=== PATIENT | female | born 2005 | race Caucasian/White ===

== ENCOUNTER 2025-07-03 16:42 | Emergency (ER) | payer BC, SELFPAY ==
[2025-07-03 16:49] VITALS: BP 126/86
[2025-07-03 18:21] LABS: Urine Character Clear (Clear)
[2025-07-03] MEDS: MOTRIN 400 MG PO (18:29)
[2025-07-03 18:39] LABS: HCG, Urine Qualitative Screen Negative
[2025-07-03 18:40] LABS: Urine Squamous Cell >30 /LPF (Few)
[2025-07-03 18:41] LABS: Urine Red Blood Cell 0-2 /HPF (0-2); Urine White Cell 0-2 /HPF (0-5)
[2025-07-03 20:05] LABS: Hematocrit 41.8 % (37.0-47.0); Hemoglobin 13.7 g/dL (12.0-16.0); Mean Corp Hgb Conc. 32.8 g/dL (33.0-37.0); Mean Corpuscular Volume 80.1 fL (81.0-99.0); Platelet Count 352 10^3/uL (130-400); Red Cell Dist. Width 11.9 % (11.5-14.5)
[2025-07-03 20:23] LABS: ALT (SGPT) 14 U/L (0-35); AST (SGOT) 20 U/L (14-36); Albumin 5.1 g/dl (3.5-5.0); Alkaline Phosphatase 54 U/L (38-126); Blood Urea Nitrogen 12 mg/dl (7-17); Calcium 9.8 mg/dl (8.4-10.2); Carbon Dioxide 25 mmol/L (22-30); Chloride 102 mmol/L (98-107); Glucose 85 mg/dl (70-99); Potassium 4.0 mmol/L (3.5-5.1); Sodium 133 mmol/L (135-145); Total Protein 8.1 g/dl (6.3-8.2); eGFR > 60.00
--- NOTE | 2025-07-03 22:47 | ED.GENMED ---
History of Present Illness
General
Chief Complaint: Flank Pain
Source: patient and family
Exam Limitations: none
Time Seen by Provider: 07/03/25 17:55
Nursing documentation reviewed up to this point in time: agreed with
History of Present Illness
History of Present Illness:
Patient who has had IUD in place for the past 2 years, secondary to heavy menstrual cycle along, as well as contraception purposes, presents to ED secondary to worsening left-sided abdominal pain over the past 1 week. Abdominal pain described as
sharp, nonradiating, worse with certain movements, mild improvement with rest. Denies trauma. Denies fever or chills. Denies nausea, vomiting, or diarrhea. Denies loss of appetite. Denies back pain. Denies difficulty with urination. Patient
is sexually active with use of protection. Denies vaginal discharge. Denies previous history of STDs. Patient who has irregular menses secondary to IUD in place, does report having completed her menstrual cycle 2 days ago. In addition, 3 months
ago, she experienced similar type of pain, which resolved without evaluation spontaneously. There is family history of kidney stones.
Review of Systems
Review of Systems
Allergies reviewed?: Yes
All Other Systems: ROS reviewed and negative except as documented in HPI and ROS
Constitutional: Reports no symptoms; Denies fever
Respiratory: Reports no symptoms
Cardiac: Reports no symptoms
ABD/GI: Reports abdominal pain; Denies vomiting, diarrhea or constipated
: Reports no symptoms; Denies difficulty voiding or bleeding
Musculoskeletal: Reports no symptoms; Denies back pain
Skin: Reports no symptoms
Neurological: Reports no symptoms
Phy Exam
Physical Exam
Physical Exam:
Physical Exam
General: mild painful distress, not acutely ill. afebrile
Head: nc/at. eomi
Neck: supple. no meningeal signs.
Heart: s1/s2 regular rate and rhythm.
Lungs: no acute respiratory distress. clear bilaterally
Abdomen: normal bowel sounds. mild LUQ/LLQ tenderness to palpation. no distention/guarding
Neuro: alert and oriented x 3. no focal neurological deficits
Skin: no rash
Psychiatric: well kept. interactive and cooperative
Extremities: no edema. no calf tenderness.
Course
Orders/Labs/Results
Orders:
Orders
07/03/25 18:00
HCG, Urine Qualitative Screen Urgent
Date Specimen was Collected: 07/03/25
Time Specimen was Collected: 17:59
Comment: ADD ON
UA [Urinalysis] Urgent
Date Specimen was Collected: 07/03/25
Time Specimen was Collected: 17:59
Urine Microscopic Urgent
Date Specimen was Collected: 07/03/25
Time Specimen was Collected: 17:59
07/03/25 18:26
Add On- LAB Urgent
Tests Added?: urine preg, qualitative
US Pelvis W Transvag Combined Urgent
Comment:
Reason For Exam: LLQ pain
07/03/25 18:27
Ibuprofen [Motrin] 400 mg .ROUTE .STK-MED ONE
07/03/25 18:28
Ibuprofen [Motrin] 400 mg PO NOW STA
07/03/25 19:27
CT Abd/pel Without Iv Or Oral Urgent
Comment:
Reason For Exam: left flank pain
07/03/25 19:49
Complete Blood Count/No Diff Urgent
Comprehensive Metabolic Panel Urgent
Monotest Urgent
Abnormal Lab Results
07/03/25 07/03/25
18:00 19:49
MCV 80.1 L fL
(81.0-99.0)
MCH 26.2 L pg
(27.0-31.0)
MCHC 32.8 L g/dL
(33.0-37.0)
Sodium 133 L mmol/L
(135-145)
Albumin 5.1 H g/dl
(3.5-5.0)
Urine Bacteria Few A
(Negative)
Urine Albumin 1+ A
(Neg - Trace)
07/03/25 19:49
07/03/25 19:49
Vital Signs
Initial and Last Documented VS:
Initial Vital Signs
Temp Pulse Resp BP Pulse Ox
98.1 F 100 20 126/86 98
07/03/25 16:49 07/03/25 16:49 07/03/25 16:49 07/03/25 16:49 07/03/25 16:49
Last Documented Vital Signs
Temp Pulse Resp BP Pulse Ox
98.1 F 100 20 126/86 98
07/03/25 16:49 07/03/25 16:49 07/03/25 16:49 07/03/25 16:49 07/03/25 22:48
MDM/Problems Addressed
MDM/Problems Addressed:
Ultrasound report reviewed and discussed with patient and her mother. In light of patient's persistent symptoms, decision made to obtain CT abdomen pelvis, especially with family history of kidney stones.
CT abdomen pelvis report reviewed and discussed with patient and her mother. In light of patient's non-specific symptoms, along with family history of Crohn's disease, patient will be referred to gastroenterology for further evaluation and
treatment. Return precautions provided, i.e. fever/worsening pain. Patient otherwise is afebrile, hemodynamically stable, and appears nontoxic at time of discharge.
Pelvic exam deferred at this time, as patient reports use of protection without pelvic pain/discharge/abnormal bleeding
*Pulse Oximetry
SaO2: 98
Oxygen Mode of Delivery: Room air
Patient hypoxic: no
*Critical Care Note
Total Time (30-74mins, 75-104mins- exclusive of procedures): Not Applicable
ED Attending Note
-
Portions of this chart may have been created with voice recognition software.� Occasional wrong word or��sound alike� substitutions may have occurred due to the inherent limitations of voice recognition software.
Discharge Plan
Departure
Patient Disposition: Home (Routine Discharge)
Date of Disposition: 07/03/25
Time of Disposition: 22:48
Patient with high blood pressure during this ER visit?: Yes
Condition: Fair
Discharge Problem:
Abdominal pain
Instructions: Abdominal pain in adults (DC)
Prescriptions:
No Action
ibuprofen 600 MG tablet
600 mg PO Q6HPRN PRN (Reason: pain) Qty: 20 0RF
ondansetron 4 MG tablet,disintegrating
4 mg PO TIDPRN PRN (Reason: nausea/vomiting) Qty: 10 0RF
Referrals:
Valeri Mcrae PA-C [Family Provider, Pediatrics]
Laquita Olvera MD [Active, Gastroenterology]
Activity Restrictions/Additional Instructions:
As discussed, please follow-up with your primary care physician and/or referred injection wax molder for further evaluation and treatment. Please consider return to ED with worsening symptoms, i.e. fever/worsening pain.
Interventions
Interventions:
*Risk Screen - Suicide Last Done: 07/03/25 19:57
*General Assessment Last Done: 07/03/25 16:49
*Neglect/Abuse Screening Last Done: 07/03/25 19:57
*ED- Fall Risk Assessment Last Done: 07/03/25 19:57
*ED COVID-19 Vaccine History Last Done: 07/03/25 19:57
*ED Influenza Vaccine History Last Done: 07/03/25 19:57
*Nursing Disposition Last Done: 07/03/25 23:13
AW-Jtrqru-Ycdpllszrw Assessment Last Done: 07/03/25 17:55
ED-Female Genitourinary Assessment Last Done: 07/03/25 17:55
Discharge Date and Time
Discharge Date/Time: 07/03/25 23:16
Print Language: [place]
== END 2025-07-03 23:16 | disposition home or self-care (01) ==
LOC: EMR 16:42
PROVIDERS: EMERGENCY PHYSICIAN Emergency Medicine; FAMILY PHYSICIAN Physician Assistant
DX: R10.32 Left lower quadrant pain (principal); Z83.79 Family history of other diseases of the digestive system; Z84.19 Family history of other disorders of kidney and ureter
CPT/HCPCS: 99284; 74176; 76830; 76856; 80053; 81003; 81015; 81025; 85027; 86308